=== PATIENT | female | born 1935 | race Caucasian/White ===

== ENCOUNTER → 2016-10-19 | Outpatient (CLI) | payer BC, OTHER ==
[~2016-10-19] MED LIST: ACET-1311 PO; ACET650S10 RE; CHOL100010 PO; CITA20TA9 PO; COLE625T PO; HALO0.5T9 PO; IPRASOL4 INH; LSN20 PO; LVQ750 PO; MAGN400T6 PO; NRV/10 PO; NTRS PO; OXCA150T2 PO; PRLSR20 PO; SERT25TA PO; TPRSR/100 PO; ZCR5 PO
[2016-10-19 10:10] LABS: ALT/SGPT 12 U/L (12-78); AST/SGOT 6 U/L (15-37); BLOOD UREA NITROGEN 14 mg/dl (7-18); BUN/CREATININE RATIO 22.2 (10-20); CALCIUM 9.1 mg/dl (8.5-10.1); CARBON DIOXIDE 29 mmol/L (21-32); CHLORIDE 109 mmol/L (98-107); CREATININE 0.64 mg/dl (0.60-1.20); GLUCOSE 75 mg/dl (70-99); MAGNESIUM 2.2 mg/dl (1.8-2.4); POTASSIUM 3.8 mmol/L (3.5-5.1); SODIUM 146 mmol/L (136-145)
[2016-10-19 10:14] LABS: ALKALINE PHOSPHATASE 63 U/L (45-117); CHOLESTEROL 115 mg/dl (0-200); CHOLESTEROL/HDL RATIO 2.1; HDL CHOLESTEROL 55 mg/dl; LDL CHOLESTEROL CALCULATED 45 mg/dl; TRIGLYCERIDES 73 mg/dl (0-150); VERY LOW DENSITY LIPOPROT CALC 15 mg/dl
== END ==
LOC: C.LABUPBEA 09:33
PROVIDERS: ATTEND Family Medicine
DX: L10.9 Pemphigus, unspecified (principal); M62.81 Muscle weakness (generalized); E78.5 Hyperlipidemia, unspecified

== ENCOUNTER → 2017-08-08 | Outpatient (CLI) | payer BC, OTHER ==
[2017-08-08 09:30] LABS: HEMATOCRIT 34.7 % (37-47); HEMOGLOBIN 11.1 g/dL (12.0-16.0); MEAN CORPUSCULAR HEMOGLOBIN 28.5 pg (25-34); MEAN PLATELET VOLUME 12.2 fL (7.4-10.4); PLATELET COUNT 168 K/uL (130-400); RED CELL DISTRIBUTION WIDTH CV 15.4 % (11.5-14.5); RED CELL DISTRIBUTION WIDTH SD 49.7 fL (36.4-46.3); WHITE BLOOD COUNT 9.58 K/uL (4.8-10.8)
[2017-08-08 09:38] LABS: ALBUMIN 2.9 gm/dl (3.4-5.0); ALT/SGPT 10 U/L (12-78); BLOOD UREA NITROGEN 22 mg/dl (7-18); CALCIUM 8.8 mg/dl (8.5-10.1); CARBON DIOXIDE 28 mmol/L (21-32); CHOLESTEROL 100 mg/dl (0-200); CREATININE 0.61 mg/dl (0.60-1.20); GLUCOSE 87 mg/dl (70-99); POTASSIUM 3.8 mmol/L (3.5-5.1); SODIUM 142 mmol/L (136-145)
[2017-08-08 09:42] LABS: ALKALINE PHOSPHATASE 70 U/L (45-117); AST/SGOT 6 U/L (15-37); LDL CHOLESTEROL CALCULATED 36 mg/dl; TOTAL PROTEIN 6.3 gm/dl (6.4-8.2)
== END ==
LOC: C.LABUPBEA 09:11
PROVIDERS: ATTEND Nurse Practitioner Family
DX: I10 Essential (primary) hypertension (principal); E78.5 Hyperlipidemia, unspecified; F02.81 Dementia in other diseases classified elsewhere, unspecified severity, with behavioral disturbance; F33.8 Other recurrent depressive disorders

== ENCOUNTER → 2017-09-07 | Outpatient (CLI) | payer BC, OTHER ==
[2017-09-07 09:36] LABS: HEMATOCRIT 34.5 % (37-47); HEMOGLOBIN 10.6 g/dL (12.0-16.0)
== END ==
LOC: C.LABUPBEA 09:17
PROVIDERS: ATTEND Nurse Practitioner Family
DX: E87.6 Hypokalemia (principal)

== ENCOUNTER → 2017-12-06 | Outpatient (CLI) | payer BC, OTHER ==
[2017-12-06 08:44] LABS: HEMATOCRIT 32.1 % (37-47); HEMOGLOBIN 9.7 g/dL (12.0-16.0); MEAN CELL VOLUME 78.5 fL (80-100); MEAN CORPUSCULAR HEMOGLOBIN 23.7 pg (25-34); MEAN CORPUSCULAR HGB CONC 30.2 g/dl (32-36); MEAN PLATELET VOLUME 11.7 fL (7.4-10.4); PLATELET COUNT 226 K/uL (130-400); RED CELL DISTRIBUTION WIDTH CV 16.3 % (11.5-14.5); RED CELL DISTRIBUTION WIDTH SD 47.2 fL (36.4-46.3); WHITE BLOOD COUNT 7.39 K/uL (4.8-10.8)
== END | disposition home or self-care (01) ==
LOC: C.LABUPBEA 07:50
PROVIDERS: ATTEND Nurse Practitioner Family

== ENCOUNTER → 2017-12-14 | Outpatient (CLI) | payer BC, OTHER ==
[2017-12-14 08:20] LABS: HEMATOCRIT 30.5 % (37-47); HEMOGLOBIN 9.4 g/dL (12.0-16.0)
== END ==
LOC: C.LABUPBEA 07:55
PROVIDERS: ATTEND Nurse Practitioner Family
DX: M62.81 Muscle weakness (generalized) (principal)

== ENCOUNTER → 2017-12-19 | Outpatient (CLI) | payer BC, OTHER ==
[2017-12-19 08:34] LABS: HEMATOCRIT 30.1 % (37-47); HEMOGLOBIN 9.3 g/dL (12.0-16.0)
== END ==
LOC: C.LABUPBEA 08:04
PROVIDERS: ATTEND Nurse Practitioner Family
DX: M62.81 Muscle weakness (generalized) (principal)